=== PATIENT | male | born 1965 | race Caucasian/White ===

== ENCOUNTER → 2016-05-13 | Day surgery (SDC) | payer OTHER ==
[~2016-05-13] MED LIST: ACETAMINOPHEN/HYDROcodone 325 MG/7.5 MG TAB ONE; ATOR40TA PO; BUPIVACAINE/EPINEPHRINE 0.25% 50 ML VIAL ONE; GLUCTAB PO; HYDR-2768 PO; KETOROLAC TROMETHAMINE 30 MG/ML (IVP) VIAL IV PUSH ONE; LISI-363 PO; MIDAZOLAM HCL 2 MG/2 ML VIAL ONE; ONDANSETRON HCL 4 MG/2 ML VIAL IV PUSH ONE; PROPOFOL 200 MG/20 ML AMP IV ONE; ceFAZolin INJ 1,000 MG VIAL ONE
--- NOTE | 2016-05-13 16:57 | TN ---
cc: ALOK NGUYEN MD DATE OF SURGERY: 05/13/2016 SURGEON: Alok Nguyen MD. PREOPERATIVE DIAGNOSIS Right knee torn medial meniscus. POSTOPERATIVE DIAGNOSIS Right knee torn medial meniscus. PROCEDURE Right knee arthroscopy, partial medial meniscectomy. PROCEDURE IN DETAIL Informed consent was obtained the patient taken to the operating room and placed in the supine position on the operating room table, was administered a general anesthesia by Dr. Cole of the Anesthesia Department. At that time the right leg was prepped with Betadine soap followed by Betadine paint after tourniquet applied leg was elevated and the drapes were placed including sterile down sheet sterile towel about tourniquets, stockings applied to foot and calf, this was wrapped with Coban extremity drape was applied. The leg was elevated and the tourniquet inflated to 300 mmHg after a time-out was held and confirmed. The patient had been given a gram of Ancef prior to initiation operative procedure at that time the table was elevated maximum height. The legs allowed to flex over the side of the operating table and 18 gauge spinal needle was placed in the lateral patellar portal. This was infiltrated 4 cc of 0.25% Marcaine with epinephrine. Infiltration was performed in the medial patellar portal and trans patellar tendon portal regions. A small incision was made with 11-blade at the trans patellar tendon portal and the inflow cannula was placed. A second incision was placed region of the lateral patellar portal. The arthroscopic cannulas placed. Diagnostic arthroscopy commenced and the medial compartment examined. The anterior portion of the meniscus and the medial portion of the meniscus looked good. However posteriorly there were undersurface irregularities. There were some degenerative changes noted in the medial femoral condyle, medial tibial plateau. The scope was placed into this region, the leg was placed in abduction and external rotation against the side post to open up the posterior portion of the meniscus. This was probed, found to be torn and excised utilizing basket forceps and the Striker meniscal shaver. Once satisfactory debridement of the medial meniscus was completed the scope was maneuvered over the intercondylar notch edge of the lateral compartment was placed per day for position. The lateral meniscus, lateral femoral condyle, lateral tibial plateau all appeared completely normal. The scope was placed in the intercondylar notch. His leg was flexed over the operative table the anterior posterior cruciate ligaments appeared normal. Scope was placed in the undersurface suprapatellar pouch. Undersurface patella demonstrated some mild chondromalacia changes. There was a thick medial plica noted which was excised. The trochlear groove looked good. The knee was flexed. The scope was placed in the posterior medial and then posterolateral compartments. These appeared normal that time the knee was thoroughly irrigated and suctioned all cannulas were removed. Each portal was closed single 4-0 nylon interrupted stitch. Band-Aids, 4x4s Sof-Rol and Jed wrap were applied to the patient's knee. The patient tolerated the procedure well and was then taken to recovery in stable condition at the completion of procedure sponge count, instrument count and needle counts were correct. Estimated blood loss was less than 10 cc total tourniquet time was 26 minutes. MD JOSEFINA Aiken/nomi /3:53 PM /4:46 PM
== END | disposition home or self-care (01) ==
LOC: ESDC 13:10
PROVIDERS: ATTEND Orthopaedic Surgery
DX: S83.241A Other tear of medial meniscus, current injury, right knee, initial encounter (principal)
CPT/HCPCS: 01400; 29881; J0690; J1885; J2250; J2405; J3010